=== PATIENT | male | born 1955 | race Two or more races ===

== ENCOUNTER 2016-09-01 23:10 | Observation (INO) | payer MEDICAID, SELFPAY ==
[~2016-09-01 23:10] MED LIST: ASPIRIN81 M1 PO; BRILINTA90 M1 PO; COREG12.5 M1 PO; HYDROCHLOROTHIA25 M1 PO; ISOSORBIDE MONO30 M4 PO; LIPITOR10 M1 PO; MOBIC7.5 M2 PO; NITROSTAT0.4 MG/TAB SL; NORVASC10 M2 PO; PROTONIX40 M2 PO
[2016-09-01 23:50] LABS: BASO % 0.3 % (0-2); EOS % 2.5 % (0-7); EOSINOPHIL ABSOLUTE COUNT 0.2 tho/cmm (0.0-0.7); HCT-HEMATOCRIT 38.3 % (36.0-53.5); HGB-HEMOGLOBIN 13.2 gm/dl (13.5-17.0); IMMATURE GRANULOCYTES ABSOLUTE 0.01 tho/cmm (0-0.03); IMMATURE GRANULOCYTES PERCENT 0.1 % (0-0.3); LYMPH % 28.4 % (20-45); LYMPH ABSOLUTE COUNT 2.1 tho/cmm (0.8-4.5); MCH (MEAN CORPUSCULAR HGB) 29.2 pg (28.0-32.0); MCHC MEAN CORPUSCULAR HGB CONC 34.5 % (32.0-36.0); MCV (MEAN CELL VOLUME) 84.7 fl (82.0-96.0); MEAN PLATELET VOLUME 10.1 cmc (9.4-12.4); MONO % 7.2 % (0-12); MONOCYTE ABSOLUTE COUNT 0.5 tho/cmm (0.0-1.2); NEUTROPHIL ABSOLUTE COUNT 4.5 tho/cmm (1.6-8.0); NEUTROPHIL-AUTOMATED 4.5 tho/cmm (1.6-8.0); NEUTROPHILS % 61.5 % (40-80); PLATELET COUNT 197 tho/cmm (150-450); RED BLOOD COUNT 4.52 mil/cmm (4.40-5.70); RED CELL DISTRIBUTION WIDTH 13.8 % (12.4-16.4); WHITE BLOOD COUNT 7.3 tho/cmm (4.0-10.0)
[2016-09-02 00:04] LABS: ALBUMIN 3.7 g/dl (3.5-5.0); ALKALINE PHOSPHATASE 70 U/L (33-138); ALT/SGPT 25 U/L (12-78); ANION GAP 13 mmol/L (0-20); AST/SGOT 23 U/L (10-40); BILIRUBIN,TOTAL 0.5 mg/dl (0.0-1.5); BLOOD UREA NITROGEN 28 mg/dl (6-24); CALCIUM 8.6 mg/dl (8.5-10.5); CARBON DIOXIDE-VENOUS 24 mmol/L (22-32); CHLORIDE 106 mmol/l (96-110); CREATININE 1.52 mg/dl (0.60-1.30); GLUCOSE 168 mg/dL (70-110); POTASSIUM 3.7 mmol/L (3.7-5.1); SODIUM 139 mmol/L (135-145); eGFR VALUE FOR BLACK 57 mL/Min
[2016-09-02 01:02] LABS: URINE BILIRUBIN NEGATIVE (NEG); URINE BLOOD NEGATIVE (NEG); URINE GLUCOSE (UA) NEGATIVE (NEG); URINE KETONE NEGATIVE (NEG); URINE LEUKOCYTE ESTERASE NEGATIVE (NEG); URINE NITRITE NEGATIVE (NEG); URINE PROTEIN NEGATIVE (NEG)
[2016-09-02 01:03] LABS: URINE APPEARANCE CLEAR; URINE COLOR YELLOW
[2016-09-03 16:24] LABS: ANION GAP 10 mmol/L (0-20); BLOOD UREA NITROGEN 19 mg/dl (6-24); CALCIUM 8.3 mg/dl (8.5-10.5); CARBON DIOXIDE-VENOUS 29 mmol/L (22-32); CHLORIDE 106 mmol/l (96-110); CREATININE 1.23 mg/dl (0.60-1.30); GLUCOSE 96 mg/dL (70-110); POTASSIUM 3.5 mmol/L (3.7-5.1); SODIUM 141 mmol/L (135-145); eGFR VALUE FOR BLACK 73 mL/Min
[2016-09-03] MEDS ORDERED: [UNRECOGNIZED DRUG - OTHER] PO (16:33)
[2017-02-09] MEDS ORDERED: HYDROCHLOROTHIA25 M1 PO (00:41)
[2017-02-09] MEDS ORDERED: COREG CR PO (04:22)
[2017-02-09] MEDS ORDERED: MELOXICAM15 M1 PO (04:25)
[2017-02-09] MEDS ORDERED: CRESTOR20 M1 PO (12:41)
[2017-02-09] MEDS ORDERED: NORVASC2.5 M1 PO (12:43)
[2017-02-09] MEDS ORDERED: TYLENOL ARTHRI650 M1 PO (13:23)
[2017-02-14] MEDS ORDERED: KEFLEX500 M4 PO (22:49)
[2017-03-16] MEDS ORDERED: PRINIVIL10 M1 PO (22:47)
[2017-03-16] MEDS ORDERED: NITROGLYCERIN0.4 M2 SL (22:48)
[2017-03-17] MEDS ORDERED: CIPRO500 M2 PO (01:06)
[2017-03-17] MEDS ORDERED: COLACE100 M1 PO (01:06)
== END 2016-09-03 18:05 ==
LOC: EDMED 23:10 → EMR2 09-02 02:34 → CAR1 09-02 03:45
PROVIDERS: Emergency Medicine; Internal Medicine Interventional Cardiology; Nurse Practitioner Family; ADMIT Internal Medicine Cardiovascular Disease
PROC: 4A023N7 Measurement of Cardiac Sampling and Pressure, Left Heart, Percutaneous Approach (ICD-10-PCS; principal; 2016-09-03)
PROC: B2111ZZ Fluoroscopy of Multiple Coronary Arteries using Low Osmolar Contrast (ICD-10-PCS; 2016-09-03)
DX: I25.119 Atherosclerotic heart disease of native coronary artery with unspecified angina pectoris (principal); E78.5 Hyperlipidemia, unspecified; I12.9 Hypertensive chronic kidney disease with stage 1 through stage 4 chronic kidney disease, or unspecified chronic kidney disease; N18.2 Chronic kidney disease, stage 2 (mild); Z79.82 Long term (current) use of aspirin; Z79.899 Other long term (current) drug therapy; Z82.49 Family history of ischemic heart disease and other diseases of the circulatory system; Z90.89 Acquired absence of other organs
CPT/HCPCS: A9500; A9540; A9558; C1887; C1894; G0378; J1644; J2250; J3010; J7030; Q9967